=== PATIENT | male | born 1955 | race Caucasian/White ===

== ENCOUNTER 2017-04-01 12:11 | Inpatient (IN) | payer BC ==
[~2017-04-01] VITALS: Ht 177.8 cm; Wt 99.5 kg
[2017-04-01 13:22] LABS: MCH 30.5 PG (29.0-34.0); MCHC 34.5 G/DL (30.0-36.0); MCV 88.5 FL (86-99); MEAN PLAT.VOLUME 9.8 uM^3 (9.0-12.4); PLATELET COUNT 209 K/uL (156-360); RBC DIS.WIDTH-SD 42.1 % (39-53); RED BLOOD COUNT 5.31 M/uL (4.00-5.50); WHITE BLOOD COUNT 13.6 K/uL (4.1-10.2)
[2017-04-01 13:45] LABS: CHLORIDE 104 mEq/L (99-109); POTASSIUM 4.4 mEq/L (3.7-5.4); SODIUM 139 mEq/L (136-147)
[2017-04-01 13:47] LABS: GLUCOSE 180 mg/dL (70-99)
[2017-04-01 13:48] LABS: ANION GAP 11 MEQ/L (2-14)
[2017-04-01 13:49] LABS: TOTAL BILIRUBIN 1.8 mg/dL (0.0-1.0)
[2017-04-01] MEDS ORDERED: PROPRANOLOL HC120 MG PO (13:50)
[2017-04-01] MEDS ORDERED: LISINOPRIL10 MG PO (13:50)
[2017-04-01] MEDS ORDERED: METFORMIN HCL500 MG PO (13:50)
[2017-04-01] MEDS ORDERED: ATORVASTATIN CA40 MG PO (13:50)
[2017-04-01 13:51] LABS: ALKALINE PHOSPHATASE 62 IU/L (3-129)
[2017-04-01] MEDS ORDERED: ZYRTEC10 M2 PO (13:51)
[2017-04-01] MEDS ORDERED: LO-DOSE ASPIRIN81 M2 PO (13:51)
[2017-04-01 13:52] LABS: UREA NITROGEN (BUN) 19 mg/dL (9-23)
[2017-04-01 13:56] LABS: GFR ESTIMATE (CALCULATED) > 59 mL/min/
[2017-04-01 14:25] LABS: LIPASE 11 U/L (1.0-51.0)
[2017-04-01 15:05] LABS: TROP-I INTERPRETATION NEGATIVE; TROPONIN-I < 0.01 ng/mL (0.0-0.30)
[2017-04-01 15:48] LABS: ADD MIUA? NO; BILIRUBIN NEGATIVE; BLOOD NEGATIVE; COLOR YELLOW ((YELLOW)); GLUCOSE (STRIP) NEGATIVE; KETONES 20; LEUKOCYTES NEGATIVE; NITRITE NEGATIVE; PROTEIN (STRIP) 30; UCUL ADDED? NO; UROBILINOGEN 0.2 MG/DL (0.2-1.0)
[2017-04-01 16:03] LABS: SPECIFIC GRAVITY 1.089 (1.000-1.030)
[2017-04-01] MEDS ORDERED: PROAIR HFA8.5 GM IH (16:24)
[2017-04-01 18:27] VITALS: BP 127/79
[2017-04-01 21:40] VITALS: BP 128/68
[2017-04-01 22:07] LABS: POINT-OF-CARE METER ID UU14162508
[2017-04-02 00:45] VITALS: BP 118/67; BP 123/60
[2017-04-02 03:45] VITALS: BP 124/64
[2017-04-02 06:40] LABS: HEMATOCRIT 43.3 % (38.0-50.0); MCH 30.5 PG (29.0-34.0); MCHC 33.7 G/DL (30.0-36.0); MCV 90.6 FL (86-99); MEAN PLAT.VOLUME 9.3 uM^3 (9.0-12.4); PLATELET COUNT 161 K/uL (156-360); RBC DIS.WIDTH-CV 13.2 % (11.8-14.6); RBC DIS.WIDTH-SD 43.6 % (39-53); RED BLOOD COUNT 4.78 M/uL (4.00-5.50)
[2017-04-02 06:48] LABS: POINT-OF-CARE METER ID UU14162508
[2017-04-02 07:07] LABS: ALKALINE PHOSPHATASE 53 IU/L (3-129); ANION GAP 11 MEQ/L (2-14); CHLORIDE 106 MEQ/L (99-109); GFR ESTIMATE (CALCULATED) > 59 mL/min/; GLUCOSE 126 mg/dL (70-99); POTASSIUM 3.7 MEQ/L (3.7-5.4); SAMPLE HEMOLYSIS CHECK 0; SAMPLE ICTERIC CHECK 0; SAMPLE LIPEMIA CHECK 0; SODIUM 144 MEQ/L (136-147); TOTAL BILIRUBIN 1.4 MG/DL (0.0-1.0); UREA NITROGEN (BUN) 18 mg/dL (9-23)
[2017-04-02 07:40] VITALS: BP 146/81
[2017-04-02 11:24] LABS: POINT-OF-CARE METER ID UU14162508
[2017-04-02 13:15] VITALS: BP 131/72
[2017-04-02 15:16] VITALS: BP 130/60
[2017-04-02 17:04] LABS: POINT-OF-CARE METER ID UU14162508
[2017-04-02 20:30] VITALS: BP 148/74
[2017-04-02 21:38] LABS: POINT-OF-CARE METER ID UU14162508
[2017-04-03 00:21] VITALS: BP 143/75
[2017-04-03 04:15] VITALS: BP 117/55
[2017-04-03 05:33] LABS: HEMATOCRIT 42.2 % (38.0-50.0); MCH 31.6 PG (29.0-34.0); MCHC 34.6 G/DL (30.0-36.0); MCV 91.3 FL (86-99); MEAN PLAT.VOLUME 9.7 uM^3 (9.0-12.4); PLATELET COUNT 150 K/uL (156-360); RBC DIS.WIDTH-CV 13.4 % (11.8-14.6); RED BLOOD COUNT 4.62 M/uL (4.00-5.50); WHITE BLOOD COUNT 9.1 K/uL (4.1-10.2)
[2017-04-03 05:56] LABS: ANION GAP 12 MEQ/L (2-14); CHLORIDE 107 MEQ/L (99-109); GFR ESTIMATE (CALCULATED) > 59 mL/min/; GLUCOSE 120 mg/dL (70-99); POTASSIUM 3.3 MEQ/L (3.7-5.4); SAMPLE HEMOLYSIS CHECK 0; SAMPLE ICTERIC CHECK 0; SAMPLE LIPEMIA CHECK 0; SODIUM 145 MEQ/L (136-147); UREA NITROGEN (BUN) 16 mg/dL (9-23)
[2017-04-03 07:41] VITALS: BP 137/72
[2017-04-03 11:54] VITALS: BP 135/78
[2017-04-03 15:31] VITALS: BP 140/75
[2017-04-03 23:26] VITALS: BP 144/78
[2017-04-04 06:37] VITALS: BP 138/83
[2017-04-04 08:45] VITALS: BP 133/70
[2017-04-04 11:58] VITALS: BP 142/79
[2017-04-04 16:21] VITALS: BP 157/89
[2017-04-04 18:33] VITALS: BP 159/74
[2017-04-04 23:27] VITALS: BP 151/76
[2017-04-05 07:11] VITALS: BP 153/83
[2017-04-05 11:40] VITALS: BP 139/82
[2017-04-05 13:46] VITALS: BP 156/85
[2017-04-05 15:00] VITALS: BP 167/75
[2017-04-05 17:47] LABS: ANION GAP 12 MEQ/L (2-14); CHLORIDE 106 MEQ/L (99-109); GFR ESTIMATE (CALCULATED) > 59 mL/min/; GLUCOSE 105 mg/dL (70-99); POTASSIUM 3.1 MEQ/L (3.7-5.4); SAMPLE HEMOLYSIS CHECK 0; SAMPLE ICTERIC CHECK 0; SAMPLE LIPEMIA CHECK 0; SODIUM 147 MEQ/L (136-147); UREA NITROGEN (BUN) 13 mg/dL (9-23)
[2017-04-05 17:58] VITALS: BP 170/80
[2017-04-05 18:21] LABS: POINT-OF-CARE METER ID UU14162508
[2017-04-05 23:55] VITALS: BP 134/74
[2017-04-06 07:46] VITALS: BP 123/65
[2017-04-06 12:32] VITALS: BP 137/81
[2017-04-06 15:41] VITALS: BP 146/63
[2017-04-06 19:46] VITALS: BP 150/70
[2017-04-06 21:18] LABS: POINT-OF-CARE USER ID AHSUCEG
[2017-04-07 00:30] VITALS: BP 115/67
[2017-04-07 03:23] VITALS: BP 111/64
[2017-04-07 07:10] VITALS: BP 121/66
[2017-04-07 07:14] LABS: POINT-OF-CARE METER ID UU14162508
[2017-04-07 07:21] LABS: ANION GAP 9 MEQ/L (2-14); CHLORIDE 105 MEQ/L (99-109); GFR ESTIMATE (CALCULATED) > 59 mL/min/; GLUCOSE 115 mg/dL (70-99); POTASSIUM 2.9 MEQ/L (3.7-5.4); SAMPLE HEMOLYSIS CHECK 0; SAMPLE ICTERIC CHECK 0; SAMPLE LIPEMIA CHECK 0; SODIUM 142 MEQ/L (136-147); UREA NITROGEN (BUN) 11 mg/dL (9-23)
[2017-04-07 10:35] LABS: MAGNESIUM 1.9 mg/dl (1.3-2.7)
== END 2017-04-07 12:33 | disposition home or self-care (01) | DRG 390 ==
LOC: EME 12:11 → RME 12:11 → 2EAST 17:07 → EDOF 17:07 → 2EAST 18:20
PROVIDERS: Hospitalist; Internal Medicine; Thoracic Surgery (Cardiothoracic Vascular Surgery)
DX: K56.5 Intestinal adhesions [bands] with obstruction (postinfection) (principal); G47.33 Obstructive sleep apnea (adult) (pediatric); Z79.84 Long term (current) use of oral hypoglycemic drugs; E11.65 Type 2 diabetes mellitus with hyperglycemia; E78.00 Pure hypercholesterolemia, unspecified; E78.5 Hyperlipidemia, unspecified; I10 Essential (primary) hypertension; E87.6 Hypokalemia; F41.9 Anxiety disorder, unspecified; G25.0 Essential tremor; J45.909 Unspecified asthma, uncomplicated; E66.9 Obesity, unspecified; Z68.31 Body mass index [BMI] 31.0-31.9, adult; Z79.82 Long term (current) use of aspirin; Z79.899 Other long term (current) drug therapy; Z85.038 Personal history of other malignant neoplasm of large intestine; Z90.49 Acquired absence of other specified parts of digestive tract; Z90.79 Acquired absence of other genital organ(s); Z92.21 Personal history of antineoplastic chemotherapy; Z92.3 Personal history of irradiation; Z82.5 Family history of asthma and other chronic lower respiratory diseases
CPT/HCPCS: 71010; 74000; 74020; 74177; 80048; 80053; 81003; 82948; 83690; 83735; 84484; 85027; 93005; 99281; 99285; J0360; J1815; J2060; J2270; J2405; J2550; J2765; J3010; J3230; J3480; J7030; J7040